=== PATIENT | female | born 2000 | race Caucasian/White ===

== ENCOUNTER 2024-05-20 13:09 | Emergency (ER) | payer OTHER, BC ==
[~2024-05-20] VITALS: Ht 172.7 cm; Wt 95.3 kg
[2024-05-20] MEDS ORDERED: BIRTH CONTROL PILL (13:57)
[2024-05-20 15:10] VITALS: BP 131/84
== END 2024-05-20 15:12 | disposition home or self-care (01) ==
LOC: ED 13:09
DX: S16.1XXA Strain of muscle, fascia and tendon at neck level, initial encounter (principal); V89.2XXA Person injured in unspecified motor-vehicle accident, traffic, initial encounter
CPT/HCPCS: 99283